=== PATIENT | female | born 1995 | race Caucasian/White ===

== ENCOUNTER 2016-10-28 04:21 | Inpatient (IN) | payer OTHER ==
[2016-10-28] MEDS: DEXTROSE 5%-LACTATED RINGERS 1,000 ML IV PRN ×2 (05:30→10:58)
--- OUTSIDE RECORDS SUMMARY | 2016-10-28 05:38 | XMS REPORT | Continuity of Care Document ---
:1995 Author Organization [facility] ([facility]) Address [address] [place] [address] Phone [phone] Care Team Providers Name Role Phone Marlo Adrian Primary Care Provider [phone] Source Comments This disclosure is being made pursuant to the Care Everywhere program, applicable federal and state laws, and may not contain all informaitonavailable regarding this patient.[facility] ([facility]) Active Allergies and Adverse Reactions Allergen Noted Date Severity Reactions Comments Grape 11/01/2010 OTHER Mom reports moderate facial swelling after Adeola ingests grapes Current Medications Prescription Sig. Disp. Refills Start Date End Date Status norethindrone Take 1 Tab by mouth 28 Tab 12 03/21/2014 Active (NOR-Q.D.) 0.35 mg daily. Indications: tablet CONTRACEPTION Active Problems Problem Noted Date Palpitations 11/25/2015 Syncope 11/25/2015 Smoking 11/25/2015 Asthma 03/09/2014 SVT (supraventricular tachycardia) 10/15/2010 ADHD (attention deficit hyperactivity disorder) 10/15/2010 Resolved Problems Problem Noted Date Resolved Date (spontaneous vaginal delivery) 03/19/2014 11/25/2015 premature rupture of membranes 03/09/2014 11/25/2015 Anemia of in third trimester 03/09/2014 11/25/2015 Social History Tobacco Use Types Packs/Day Years Used Date Current Every Day Smoker Cigarettes 1 6 Smokeless Tobacco: Never Used Tobacco Cessation:Ready to Quit: No Comments: Alcohol Use Drinks/Week oz/Week Comments No 0 Standard drinks or equivalent 0.0 Last Filed Vital Signs Vital Sign Reading Time Taken Blood Pressure 113/61 11/16/2015 10:20 AM CDT Pulse 94 11/16/2015 10:19 AM CDT Temperature 36.2 C (97.2 F) 11/16/2015 10:19 AM CDT Respiratory Rate 24 11/16/2015 10:20 AM CDT Height 1.579 m (5' 2.17") 11/16/2015 10:20 AM CDT Weight 52.2 kg (115 lb 1.3 oz) 11/16/2015 10:20 AM CDT Body Mass Index 20.94 11/16/2015 10:20 AM CDT Oxygen Saturation 99% 11/16/2015 10:22 AM CDT Plan of Care Health Maintenance Due Date Last Done Comments Hepatitis B Vaccine (1 of 3 - Primary Series) 1995 HPV Vaccine (1 of 3 - Female/Unknown 3 Dose Series) 2006 Tdap Vaccine 2006 Meningococcal Vaccine (1 of 1) 2011 Lipid Disorder Screening 2013 MMR Vaccine 2013 Td Vaccine 2013 Varicella Vaccine (1 of 2 - Adult - No Evidence of 2013 Immunity) Pneumococcal Vaccine (1 of 1 - PPSV23) 2014 Influenza Vaccine: Seasonal (#1) 02/22/2016 Results from Last 3 Months Not on file
[2016-10-28] MEDS ORDERED: LIDOCAINE HCL 50 ML VIAL PERI PRN (05:39)
[2016-10-28] MEDS ORDERED: OXYTOCIN/DEXTROSE 5%-WATER 30 UNITS/500 ML BAG IV ONE ×2 (05:39→14:12)
[2016-10-28 06:44] LABS: Cocaine Ur Negative (NEGATIVE); Urine Barbiturate Negative (NEGATIVE); Urine Benzodiazepines Negative (NEGATIVE); Urine Opiates Negative (NEGATIVE); Urine PCP Negative (NEGATIVE); Urine THC Negative (NEGATIVE)
--- NOTE | 2016-10-28 08:23 | PN ---
Progess Note - Interim Narrative: 10/28/16 08:21 Patient rating contractions 4 out of 10. Vital signs stable. Pitocin at 6 mu/min. FHT: reassuring Contractions q 3-4 min Cervix: 4/60/-1, SROM at 0300 - clear Impression: Intrauterine at 36 4/7 weeks labor Plan: Continue Pitocin augmentation. Start IV antibiotics for prolonged rupture of membranes after 1500 today if still .
[2016-10-28] MEDS: RINGERS SOLUTION,LACTATED 1,000 ML IV ONE ×2 (08:46→10:00)
[2016-10-28] MEDS ORDERED: BUPIVACAINE HCL/0.9 % NACL/PF 250 ML EP PRN (09:07)
[2016-10-28] MEDS ORDERED: ONDANSETRON HCL/PF 2 MG/ML VIAL IV PRN (09:07)
[2016-10-28] MEDS ORDERED: BUPIVACAINE HCL/PF 30 ML VIAL EP ONE (09:07)
[2016-10-28] MEDS ORDERED: NALOXONE HCL 1 MG/1 ML SYRG IV PRN (09:07)
--- NOTE | 2016-10-28 10:24 | OR ---
Anesthesia Procedure Note - Anesthesia Procedure Note Date of Service: 10/28/16 Narrative: Vital Signs - Last Taken Temp 37.6 C H 10/28/16 09:54 Pulse 82 10/28/16 09:54 Resp 20 10/28/16 09:54 BP 102/62 10/28/16 09:54 Pulse Ox 96 10/28/16 09:54 10/28/16 10:23 ANESTHESIA PROCEDURE NOTE Date of Procedure: 10/28/2016. Time of procedure: 999. Performed by: Saji Dumont CRNA Electric Refrigerator Preparer: None. Preprocedure diagnosis: Active labor. Post procedure diagnosis: Same. Procedure: Insertion of labor epidural. Indications: The patient is a 21 -year-old female in active labor requesting labor epidural for pain management. Findings: See below. Details of the procedure: The patient was placed in a sitting position. DuraPrep as well as Betadine swabs 3 was applied to the patient's back. Patient was then draped in a sterile fashion. Lidocaine 1% was infiltrated to the skin and subcutaneous tissues at the level of the L3 4 interspace. The epidural space was identified using a 18-gauge Tuohy needle with loss-of- resistance technique. Epidural catheter was inserted to a depth of 10 centimeters at skin. Negative test dose was elicited using 3 mL of 1.5% preservative-free lidocaine plus epinephrine 1 200,000. The epidural catheter was then taped and secured in place. A loading dose of 8 mL of 0.25% preservative-free bupivacaine was administered to the epidural catheter after negative aspiration for blood and CSF. EBL: Minimal. Fluids: N/A. Specimen: N/A. Post procedure condition: The patient tolerated the procedure well. No complications were noted. Thank you for this consultation. Saji Dumont CRNA
--- NOTE | 2016-10-28 13:42 | OR ---
Operative Report - Dictated Report Narrative: Spontaneous vaginal delivery of viable female at 1325 on 10/28/16 in JOCELINE position with Apgars 9 and 9, weighing 2594 g. Cord clamping delayed approximately 1 minute Placenta delivered complete, intact, with three vessel cord Estimated blood loss: less than 50 ml Lacerations: None History for MU Definition: * The number of deliveries resulting in a live the patient experienced prior to current hospitalization * The previous delivery of live twins or any live multiple gestation is considered one live event. *If primagravida or nulliparous is documented select zero for the number of previous live births. Live Events: 2
[2016-10-28] MEDS ORDERED: BENZOCAINE/MENTHOL 81 SPRAY CAN TP PRN (14:12)
[2016-10-28] MEDS ORDERED: BISACODYL 10 MG SUPP.RECT RC PRN (14:12)
[2016-10-28] MEDS ORDERED: HYDROCORTISONE 30 APPL TUBE TP PRN (14:12)
[2016-10-28] MEDS ORDERED: SENNOSIDES 8.6 MG TABLET PO PRN (14:12)
[2016-10-28] MEDS ORDERED: GLYCERIN/WITCH HAZEL LEAF 40 APPL BOX TP PRN (14:12)
[2016-10-28] MEDS ORDERED: oxyCODONE HCL/ACETAMINOPHEN 1 TAB TABLET PO PRN ×2 (14:12)
[2016-10-28] MEDS: IBUPROFEN 800 MG TABLET PO PRN (16:40)
[2016-10-28] MEDS: DOCUSATE SODIUM 100 MG CAPSULE PO SCH (20:52)
[2016-10-29] MEDS: IBUPROFEN 800 MG TABLET PO PRN (08:01)
[2016-10-29] MEDS: DOCUSATE SODIUM 100 MG CAPSULE PO SCH ×2 (08:01→22:00)
--- NOTE | 2016-10-29 14:54 | PN ---
Subjective - Date and Time Seen Date: 10/29/16 Time: 14:52 Objective - Vitals Vitals: Last Vital Signs Temp 36.5 C 10/29/16 11:06 Pulse 81 10/29/16 11:06 Resp 16 10/29/16 11:06 BP 102/59 10/29/16 11:06 Pulse Ox 97 10/29/16 11:06 Patient denies complaints. Lochia wnl Abdomen - soft, nontender Uterus - firm, at umbilicus - 1 No calf tenderness Impression: day #1 - s/p spontaneous vaginal delivery. Plan: Continue routine care Cauti Physician Documentation - Urinary Catheter Management Urethral (Leahy) Date of Insertion: 10/28/16 Time of Insertion: 10:50 Date of Removal: 10/28/16 Time of Removal: 13:14
[2016-10-30] MEDS: IBUPROFEN 800 MG TABLET PO PRN (08:06)
[2016-10-30] MEDS: DOCUSATE SODIUM 100 MG CAPSULE PO SCH (08:07)
[2016-10-30 08:13] VITALS: BP 110/72
--- NOTE | 2016-10-30 08:27 | PN ---
Subjective - Date and Time Seen Date: 10/30/16 Time: 08:24 Objective - Vitals Vitals: Last Vital Signs Temp 36.5 C 10/30/16 08:10 Pulse 73 10/30/16 08:10 Resp 16 10/30/16 08:10 BP 110/72 10/30/16 08:10 Pulse Ox 96 10/30/16 08:10 Patient denies complaints. Lochia - WNL AFVSS Abd - soft, NT Uterus - @ u-2 No calf tenderness or LE edema Impression: 1. S/P of 36 4/7wk female 2. Anemia Plan: 1. Routine d/c instructions. 2. Continue Iron supplement. Cauti Physician Documentation - Urinary Catheter Management Urethral (Leahy) Date of Insertion: 10/28/16 Time of Insertion: 10:50 Date of Removal: 10/28/16 Time of Removal: 13:14
== END 2016-10-30 10:10 | disposition home or self-care (01) | DRG 775 ==
LOC: OB 04:21
PROVIDERS: ADMIT Obstetrics & Gynecology; ATTEND Obstetrics & Gynecology
PROC: 10E0XZZ Delivery of Products of Conception, External Approach (ICD-10-PCS; principal; 2016-10-28)
PROC: 4A1HXCZ Monitoring of Products of Conception, Cardiac Rate, External Approach (ICD-10-PCS; 2016-10-28)
PROC: 3E0S3CZ (ICD-10-PCS; 2016-10-28)
DX: O99.02 Anemia complicating childbirth (principal); O60.14X0 Preterm labor third trimester with preterm delivery third trimester, not applicable or unspecified; D50.8 Other iron deficiency anemias; O99.334 Smoking (tobacco) complicating childbirth; F17.210 Nicotine dependence, cigarettes, uncomplicated; Z3A.37 37 weeks gestation of pregnancy; Z37.0 Single live birth

== ENCOUNTER 2017-03-11 21:18 | Emergency (ER) | payer MEDICAID, OTHER ==
[2017-03-11] MEDS ORDERED: KETOROLAC TROMETHAMINE 30 MG/ML VIAL IM ONE (21:54)
[2017-03-11] MEDS ORDERED: HYDROcodone/ACETAMINOPHEN 1 EACH TABLET PO ONE (21:54)
[2017-03-11 22:02] VITALS: BP 104/76
[2017-03-11] MEDS ORDERED: HYDROcodone/ACETAMINOPHEN 1 EACH TABLET ONE (22:02)
[2017-03-11] MEDS ORDERED: KETOROLAC TROMETHAMINE 30 MG/ML VIAL ONE (22:02)
--- NOTE | 2017-03-11 22:03 | ERNOTE ---
ENT HPI Date of Service: 03/11/17 Presenting Symptoms: other - left ear pain Time Seen by Provider: 03/11/17 21:32 Source: patient - Immun/Allergies/Home Medications Immunizations: IMMUNIZATION HX Immunizations Up to Date Yes History of Influenza Vaccine Yes Hx Pneumococcal Vaccination No Allergies/Adverse Reactions: Allergies Allergy/AdvReac Type Severity Reaction Status Date / Time grape Allergy Verified 03/11/17 21:29 Home Medications: HOME MEDICATIONS Ibuprofen [Motrin] 200 - 800 mg PO Q6H PRN #100 tab 10/30/16 [Last Taken Unknown ] HYDROcodone/ACETAMINOPHEN [[place] 5-325] 1 tab PO Q4H PRN #12 tab 03/11/17 [Last Taken Unknown] - History of Present Illness Narrative: This is a 21-year-old female who comes to the emergency Department 2-1/2 days of left ear pain. Patient says that she has had slightly decreased hearing. She says the hearing "goes in and out". The patient denies any fever or chills. She denies any drainage from her ear. She says that the ear pain hurts down into the base of her neck. The patient says that she has never had symptoms like this in the past. Nothing makes the pain better or worse. She has had no fever chills nausea vomiting diarrhea constipation urinary symptoms chest pain cough or any other somatic complaints Review of Systems - Review of Systems Constitutional: Present: no symptoms reported EYE: Present: no symptoms reported ENT: Present: See HPI, ear pain, other - eustachian tube area pain Respiratory: Present: no symptoms reported Cardiology: Present: no symptoms reported Gastrointestinal/Abdominal: Present: no symptoms reported Genitourinary: Present: no symptoms reported Musculoskeletal: Present: no symptoms reported Skin: Present: no symptoms reported Neurological: Present: no symptoms reported Endocrine: Present: no symptoms reported Hematologic/Lymphatic: Present: no symptoms reported Psych: Present: no symptoms reported All Other Systems: All systems neg except as marked - Patient's Past Medical History Patient History - Medical: No pertinent hx Patient History - Cardiac/Respiratory: No pertinent hx Patient History - Cancer: No Hx of Cancer Patient History - Surgical Procedures: T & A Patient History - Other: None LMP (females 10-50): unknown - Family History Mother Family History - Medical: Diabetes Type 2 Grandmother-Maternal Family History - Medical: Diabetes Type 2 - Social History Living Situations: parents Abuse History: No History of abuse Psych History: No pertinent hx, Psychiatric Hx Smoking Status: Current every day smoker Have you smoked in the past 12 months: Yes Do you dip or chew tobacco: No Alcohol Use: none Drug Use: none - Immunizations Immunizations Up to Date: Yes Hx Pneumococcal Vaccination: No History of Influenza Vaccine: Yes Physical Exam - Physical Exam General Appearance: Present: wd/wn, alert, no apparent distress Head Exam: Present: normal inspection, no evidence of injury Eye Exam: Normal inspection: bilateral, PERRL: bilateral, EOMI: bilateral Ears, Nose, Throat: Present: other - extremely poor dentition. There is no tenderness to percussion. Bilateral tympanic membranes are pearly ricardo and normal in appearance. There is no fullness of the subcutaneous tissues. Neck: Present: normal inspection, nontender, other - no nuchal rigidity Respiratory: Present: no respiratory distress, lungs clear Cardiovascular/Chest: Present: regular rate, rhythm, no murmur Gastrointestinal/Abdominal: Present: normal bowel sounds, nontender Back Exam: Present: normal inspection Extremity Exam: Present: normal inspection, non-tender Neurological Exam: Present: alert, oriented, normal mood/affect Skin Exam: Present: normal color, warm/dry Lymphatic Exam: Present: no adenopathy ED Progress - Vital Signs Patient's Vital Signs:: I have reviewed the patient's vital signs. Vital Signs: Vital Signs 03/11/17 21:24 Temperature 36.7 C Pulse Rate 128 H Respiratory 18 Rate Blood Pressure 116/74 O2 Sat by Pulse 99 Oximetry - Progress/Reassessment Chief Complaint: Earache Progress:: Unchanged Progress Note-Subjective: 03/11/17 21:59 I had the patient attempt to clear her ears. The patient says that she got a severe wave of pain for which she felt like she had rubber neck on the left side after she popped her ears. This is very consistent with eustachian tube dysfunction. I'm going treat her with Sudafed, anti-inflammatory in the form of Toradol, and a few tablets of [place] to go home with. I really have nothing else to offer in the way of pain relief. So if this medicine doesn't help she still can go home with the same medicines. Therefore nocturnal hold her here to see if there is any result. Departure Clinical Impression: Eustachian tube dysfunction - Departure Disposition: Home self-care Condition: Stable Instructions: Earache Additional Instructions: As we discussed, your symptoms are very suspicious for something called eustachian tube dysfunction. The eustachian tube is what allows here pressure to equalize going up-and-down airplanes or up-and-down tall heals. If this tube gets swollen up usually with a viral infection, the pressure will not equalize and can cause significant discomfort. It causes pain in exactly the location that you have shown me. I want you to use Sudafed. This can be bought [id number] at any pharmacy. Use this as often as it is allowed. Usually this is every 4 hours. I want you to take ibuprofen. Take 3 of the 200 mg tablets every 6 hours. At 600 mg every 6 hours. For more severe pain he can take the prescribed hydrocodone. No driving or operating machinery all taking this medicine. ALESSANDRO Swann family doctor and set up a follow-up appointment Certainly if you develop increased symptoms, fever, drainage from the ear, or anything new or concerning he should return to the ER Prescriptions: HYDROcodone/ACETAMINOPHEN [[place] 5-325] 1 tab PO Q4H PRN #12 tab PRN Reason: Pain
[2017-03-11] MEDS ORDERED: PSEUDOEPHEDRINE HCL 30 MG TAB PO ONE (22:15)
== END 2017-03-11 22:23 | disposition home or self-care (01) ==
LOC: ER 21:18
DX: H68.002 Unspecified Eustachian salpingitis, left ear (principal); F17.200 Nicotine dependence, unspecified, uncomplicated

== ENCOUNTER 2018-03-30 00:28 | Inpatient (IN) ==
[2018-03-30] MEDS ORDERED: DEXTROSE 5%-LACTATED RINGERS 1,000 ML IV PRN (00:53)
[2018-03-30] MEDS ORDERED: RINGER'S SOLUTION,LACTATED 1,000 ML IV PRN (00:53)
[2018-03-30] MEDS ORDERED: ONDANSETRON HCL/PF 2 MG/ML VIAL IV PRN ×2 (00:53→06:52)
[2018-03-30] MEDS ORDERED: OXYTOCIN/DEXTROSE 5%-WATER 30 UNITS/500 ML BAG IV ONE ×2 (00:55→11:28)
[2018-03-30 04:50] LABS: Cocaine Ur Negative (NEGATIVE); Urine Barbiturate Negative (NEGATIVE); Urine Benzodiazepines Negative (NEGATIVE); Urine Opiates Negative (NEGATIVE); Urine PCP Negative (NEGATIVE); Urine THC Negative (NEGATIVE)
[2018-03-30] MEDS ORDERED: BUPIVACAINE HCL/0.9 % NACL/PF 250 ML EP PRN (06:52)
[2018-03-30] MEDS ORDERED: NALOXONE HCL 1 MG/1 ML SYRG IV PRN (06:52)
[2018-03-30] MEDS ORDERED: BUPIVACAINE HCL/PF 30 ML VIAL EP SCH (07:00)
--- NOTE | 2018-03-30 07:21 | ANES ---
Anesthesia Pre Procedure Eval Vitals/Labs: Last Vital Signs Temp 36.7 C 03/30/18 01:38 Pulse 104 H 03/30/18 01:38 Resp 16 03/30/18 01:38 BP 117/82 03/30/18 01:38 Pulse Ox 98 03/30/18 01:38 HOME MEDICATIONS vitamin,calcium,yloptlyo-mnrm-lsmlz acid tablet 1 tab PO DAILY [Last Taken 01/22/18 19:00] progesterone micronized 100 mg vaginal inserts 200 mg VG HS ea 01/22/18 [Last Taken 01/21/18] ferrous sulfate 325 mg (65 mg iron) tablet,delayed release 325 mg PO BID #60 tab 01/25/18 [Last Taken Unknown] Allergies/Adverse Reactions: Allergies Allergy/AdvReac Type Severity Reaction Status Date / Time grape Allergy Severe Anaphylaxis Verified 03/30/18 00:37 house dust Allergy Sneezing Verified 03/30/18 00:37 No Known Drug Allergies Allergy Verified 03/30/18 00:37 - Planned Procedure Planned Procedure: LABOR Medication List Reviewed:: Yes Allergies Verified: Yes Medical History (Last Reviewed 03/05/18 @ 15:11 by Becki Caballero) History of delivery, currently SVT (supraventricular tachycardia) Onset Date: ~2010 Tobacco abuse Onset Date: ~08/19/14 ADHD (attention deficit hyperactivity disorder) Anemia affecting Asthma History of delivery, currently Infection of kidney Onset Date: ~2012 labor Syncope Onset Date: ~2010 premature rupture of membranes (PPROM) delivered, current hospitalization Surgical History (Last Reviewed 03/05/18 @ 15:11 by Becki Caballero) History of cardiac radiofrequency ablation Onset Date: ~2010 History of tonsillectomy Onset Date: ~1998 History of wisdom tooth extraction Onset Date: ~2007 Family History (Last Reviewed 03/05/18 @ 15:11 by Becki Caballero) Father Unknown family medical history Mother Kidney failure Breast cancer Diabetes Grandmother Diabetes Cancer - Cardiovascular Tolerates Activity: Good Heart Sounds: S1 & S2, Regular - Anesthesia Assessment and Plan ASA Class: PS, II Anesthesia Type Plan: General LMA
--- NOTE | 2018-03-30 07:38 | ANES ---
Anesthesia Procedure Note Procedure Note: ANESTHESIA PROCEDURE NOTE Date of Procedure: 03/30/2018. Time of procedure: 724. Performed by: Saji Dumont CRNA Global Sourcing Manager: None. Preprocedure diagnosis: Active labor. Post procedure diagnosis: Same. Procedure: Insertion of labor epidural. Indications: The patient is a 22 -year-old female in active labor requesting labor epidural for pain management. Findings: See below. Details of the procedure: The patient was placed in a sitting position. DuraPrep as well as Betadine swabs X3 was applied to the patient's back. Patient was then draped in a sterile fashion. Lidocaine 1% was infiltrated to the skin and subcutaneous tissues at the level of the L3-4 interspace. The epidural space was identified using a 18-gauge Tuohy needle with loss-of- resistance technique. Epidural catheter was inserted to a depth of 10 centimeters at skin. Negative test dose was elicited using 3 mL of 1.5% preservative-free lidocaine plus epinephrine 1 200,000. The epidural catheter was then taped and secured in place. A loading dose of 8 mL of 0.25% preservative-free bupivacaine was administered to the epidural catheter after negative aspiration for blood and CSF. EBL: Minimal. Fluids: N/A. Specimen: N/A. Post procedure condition: The patient tolerated the procedure well. No complications were noted. Thank you for this consultation. Saji Dumont CRNA
--- NOTE | 2018-03-30 07:39 | ANES ---
Post Anesthesia Assessment - Vital Signs Vitals: Last Vital Signs Temp 36.7 C 03/30/18 01:38 Pulse 104 H 03/30/18 01:38 Resp 16 03/30/18 01:38 BP 117/82 03/30/18 01:38 Pulse Ox 98 03/30/18 01:38 Airway Patency: Normal - Mental Status Level Of Consciousness: Awake - N/V Assessment Nausea/Vomiting Presence: None Dehydration:: No
--- NOTE | 2018-03-30 10:48 | HP ---
Chief Complaint - Chief Complaint Date of Service: 03/30/18 Time of Service: 10:37 Chief Complaint: Leaking fluid History of Present Illness: 22 yo at 37 wks presents to L&D complaining of LOF since aroun 1400 yesterday. She began having contractions late last night when she presented to L&D. This complicated by history of PTD x 3 (34,36,36) on vaginal progesterone suppositories. Rh Positive Rubella immune GBS negative Medical History (Last Reviewed 03/05/18 @ 15:11 by Becki Caballero) History of delivery, currently SVT (supraventricular tachycardia) Onset Date: ~2010 Tobacco abuse Onset Date: ~08/19/14 ADHD (attention deficit hyperactivity disorder) Anemia affecting Asthma History of delivery, currently Infection of kidney Onset Date: ~2012 labor Syncope Onset Date: ~2010 premature rupture of membranes (PPROM) delivered, current hospitalization Surgical History: Surgical History (Last Reviewed 03/05/18 @ 15:11 by Becki Caballero) History of cardiac radiofrequency ablation Onset Date: ~2010 History of tonsillectomy Onset Date: ~1998 History of wisdom tooth extraction Onset Date: ~2007 Family History: Family History (Last Reviewed 03/05/18 @ 15:11 by Becki Caballero) Father Unknown family medical history Mother Kidney failure Breast cancer Diabetes Grandmother Diabetes Cancer Social History: Preferred Language Persian Abuse History No History of abuse Psych History No pertinent hx,Psychiatric Hx Review Of Systems (GEN) - Review of Systems EENTM: Present: No Symptoms Reported Respiratory: Present: No Symptoms Reported Cardiac: Present: No Symptoms Reported Abdominal: Present: No Symptoms Reported Genitourinary: Present: Other - leaking clear vaginal fluid since 1400 03/29/18. Musculoskeletal: Present: No Symptoms Reported Neurological: Present: No Symptoms Reported Skin: Present: No Symptoms Reported Endocrine: Present: No Symptoms Reported Immunizations: IMMUNIZATION HX Immunizations Up to Date Yes History of Influenza Vaccine Yes Hx Pneumococcal Vaccination No Allergies/Adverse Reactions: Allergies Allergy/AdvReac Type Severity Reaction Status Date / Time grape Allergy Severe Anaphylaxis Verified 03/30/18 00:37 house dust Allergy Sneezing Verified 03/30/18 00:37 No Known Drug Allergies Allergy Verified 03/30/18 00:37 Home Medications: HOME MEDICATIONS vitamin,calcium,sjtdnyaw-mhfk-zgzts acid tablet 1 tab PO DAILY [Last Taken 01/22/18 19:00] progesterone micronized 100 mg vaginal inserts 200 mg VG HS ea 01/22/18 [Last Taken 01/21/18] ferrous sulfate 325 mg (65 mg iron) tablet,delayed release 325 mg PO BID #60 tab 01/25/18 [Last Taken Unknown] Exam - Exam Vital Signs: Vital Signs - Last Taken Temp 36.7 C 03/30/18 01:38 Pulse 104 H 03/30/18 01:38 Resp 16 03/30/18 01:38 BP 117/82 03/30/18 01:38 Pulse Ox 98 03/30/18 01:38 Constitutional: Present: Alert, Oriented x3, Cooperative, No distress ENT Exam: Present: hearing grossly normal Back Exam: Present: no CVA tenderness Respiratory: Present: lungs clear, no respiratory distress Cardiovascular/Chest: Present: normal peripheral pulses, regular rate, rhythm Abdomen: Present: soft, nontender, other - gravid /Rectal: Present: External genitalia normal, Other - cervix 1/70/-3, clear fluid Extremity: Present: non-tender, no pedal edema, no calf tenderness Skin Exam: Present: normal color, warm/dry, no cyanosis Lymphatic: Present: no adenopathy Neurologic: Present: alert, normal mood/affect, oriented x 3 Appearance: Present: appropriate appearance Eye contact: Present: cooperative, good eye contact, normal speech Diagnostic Studies: Laboratory Results Urine Opiates Screen Negative (NEGATIVE) 03/30/18 Unknown Barbiturate Screen Negative (NEGATIVE) 03/30/18 Unknown Ur Phencyclidine Scrn Negative (NEGATIVE) 03/30/18 Unknown Urine Amphetamine Negative (NEGATIVE) 03/30/18 Unknown U Benzodiazepines Scrn Negative (NEGATIVE) 03/30/18 Unknown Urine Cocaine Screen Negative (NEGATIVE) 03/30/18 Unknown Urine Marijuana (THC) Negative (NEGATIVE) 03/30/18 Unknown Assessment/Plan - Assessment/Plan (1) Premature rupture of membranes Assessment: Admit for pitocin augmentation of labor. Epidural PRN. Observe closely for s/ s of chorioamnionitis. Problem: Acute Qualifiers: PROM onset of labor timing: onset of labor within 24 hours of rupture PROM gestational age: full term Qualified Code(s): O42.02 - Full-term premature rupture of membranes, onset of labor within 24 hours of rupture
--- NOTE | 2018-03-30 10:51 | PN ---
Progess Note - Interim Date: 03/30/18 Time: 10:48 Narrative: 03/30/18 10:48 Patient comfortable with epidural Vital signs stable. Pitocin at 10 mu/min. FHT: 140 baseline, reassuring Contractions q 2-3 min Cervix: 8/80/0, floor bag artificially ruptured with bloody/clear fluid Impression: Intrauterine at 37 weeks with premature ruptured membranes in active labor Plan: Anticipate normal spontaneous vaginal delivery soon. We'll observe closely for signs or symptoms of chorioamnionitis.
[2018-03-30] MEDS ORDERED: oxyCODONE HCL/ACETAMINOPHEN 1 TAB TABLET PO PRN ×2 (11:28)
[2018-03-30] MEDS ORDERED: BENZOCAINE/MENTHOL 81 SPRAY CAN TP PRN (11:28)
[2018-03-30] MEDS ORDERED: GLYCERIN/WITCH HAZEL LEAF 40 APPL BOX TP PRN (11:28)
[2018-03-30] MEDS ORDERED: HYDROCORTISONE 30 APPL TUBE TP PRN (11:28)
[2018-03-30] MEDS ORDERED: SENNOSIDES 8.6 MG TABLET PO PRN (11:28)
[2018-03-30] MEDS ORDERED: BISACODYL 10 MG SUPP.RECT RC PRN (11:28)
--- NOTE | 2018-03-30 11:28 | OR ---
Operative Report - Dictated Report Narrative: Spontaneous vaginal delivery of viable female at 1114 on 03/30/2018 with Apgars 9 and 9, weighing 2756 g and JOCELINE position. Cord clamping delayed approximately 1 minute Placenta delivered complete, intact, with three vessel cord Estimated blood loss: less than 50 ml Anesthesia: epidural Lacerations: Right periurethral abrasion with no repair needed History for Definition: * The number of deliveries resulting in a live the patient experienced prior to current hospitalization * The previous delivery of live twins or any live multiple gestation is considered one live event. *If primagravida or nulliparous is documented select zero for the number of previous live births. Live Events: 3
[2018-03-30] MEDS: IBUPROFEN 800 MG TABLET PO PRN (17:34)
[2018-03-30] MEDS: FERROUS SULFATE 325 MG TABLET PO SCH (23:00)
[2018-03-30] MEDS: DOCUSATE SODIUM 100 MG CAPSULE PO SCH (23:00)
[2018-03-31] MEDS: DOCUSATE SODIUM 100 MG CAPSULE PO SCH ×2 (08:48→22:21)
[2018-03-31] MEDS: PRENATAL VITS96/IRON FUM/FOLIC 1 TAB TABLET PO SCH (08:48)
[2018-03-31] MEDS: FERROUS SULFATE 325 MG TABLET PO SCH ×2 (08:48→22:21)
[2018-03-31] MEDS: IBUPROFEN 800 MG TABLET PO PRN ×2 (15:56→22:21)
--- NOTE | 2018-03-31 17:27 | PN ---
Subjective - Date and Time Seen Date: 03/31/18 Time: 17:25 Objective - Vitals Vitals: Last Vital Signs Temp 36.6 C 03/31/18 15:50 Pulse 65 03/31/18 15:50 Resp 18 03/31/18 15:50 BP 97/61 03/31/18 15:50 Pulse Ox 98 03/31/18 15:50 Patient denies complaints. Bottle feeding. Lochia wnl Abdomen - soft, nontender Uterus - firm, at umbilicus - 1 No calf tenderness Impression: day #1 - s/p spontaneous vaginal delivery. Plan: Continue routine care. Discharge instructions given for planned discharge tomorrow a.m. Cauti Physician Documentation - Urinary Catheter Management Urethral (Leahy) Date of Insertion: 03/30/18 Time of Insertion: 08:00 Assessment/Plan - Problems/Diagnosis (1) Premature rupture of membranes Problem: Acute Qualifiers: PROM onset of labor timing: onset of labor within 24 hours of rupture PROM gestational age: full term Qualified Code(s): O42.02 - Full-term premature rupture of membranes, onset of labor within 24 hours of rupture
[2018-04-01 09:18] VITALS: BP 108/70
[2018-04-01] MEDS: PRENATAL VITS96/IRON FUM/FOLIC 1 TAB TABLET PO SCH (09:22)
[2018-04-01] MEDS: FERROUS SULFATE 325 MG TABLET PO SCH (09:22)
[2018-04-01] MEDS: DOCUSATE SODIUM 100 MG CAPSULE PO SCH (09:22)
--- NOTE | 2018-04-01 09:58 | PN ---
Subjective - Date and Time Seen Date: 04/01/18 Time: 09:56 Objective Objective Narrative: See vital signs - Review of Systems Generalized/Overall Review: Reports: No Symptoms Reported EENTM: Reports: No Symptoms Reported Respiratory: Reports: No Symptoms Reported Cardiac: Reports: No Symptoms Reported Abdominal: Reports: No Symptoms Reported Genitourinary Symptoms: Reports: No Symptoms Reported Musculoskeletal Complaints: Reports: No Symptoms Reported Neurological: Reports: No Symptoms Reported Skin: Reports: No Symptoms Reported Endocrine: Reports: No Symptoms Reported - Vitals Vitals: Last Vital Signs Temp 36.2 C 04/01/18 08:00 Pulse 78 04/01/18 08:00 Resp 18 04/01/18 08:00 BP 108/70 04/01/18 08:00 Pulse Ox 98 04/01/18 08:00 - Exam Constitutional: Present: Alert, Oriented x3, Cooperative, No distress Abdomen: Present: soft, nontender - uterus firm Extremity: Present: non-tender, no calf tenderness Skin Exam: Present: normal color, warm/dry, no cyanosis Appearance: Present: appropriate appearance Eye contact: Present: cooperative Thoughts: Present: normal thought pattern Cauti Physician Documentation - Urinary Catheter Management Urethral (Leahy) Date of Insertion: 03/30/18 Time of Insertion: 08:00 Assessment/Plan Plan Narrative: PPD2 s/p Discharge home Follow-up with Dr. Gandhi in 6 weeks
== END 2018-04-01 12:10 | disposition home or self-care (01) | DRG 775 ==
LOC: OBCLINIC 00:28 → OB 00:44
PROVIDERS: ADMIT Obstetrics & Gynecology; ATTEND Obstetrics & Gynecology
CPT/HCPCS: 59025; 80307; G0479

== ENCOUNTER 2020-03-19 00:10 | Inpatient (IN) ==
[2020-03-19] MEDS ORDERED: RINGER'S SOLUTION,LACTATED 1,000 ML IV ONE (00:25)
[2020-03-19] MEDS ORDERED: OXYTOCIN/DEXTROSE 5%-WATER 30 UNITS/500 ML BAG IV ONE ×2 (00:25→11:44)
[2020-03-19] MEDS ORDERED: ONDANSETRON 4 MG TAB.RAPDIS PO PRN (00:25)
[2020-03-19] MEDS ORDERED: DEXTROSE 5%-LACTATED RINGERS 1,000 ML IV ONE (01:20)
[2020-03-19 01:56] LABS: Cocaine Ur Negative (NEGATIVE); Urine Barbiturate Negative (NEGATIVE); Urine Benzodiazepines Negative (NEGATIVE); Urine Opiates Negative (NEGATIVE); Urine PCP Negative (NEGATIVE); Urine THC Negative (NEGATIVE)
[2020-03-19] MEDS: DEXTROSE 5%-LACTATED RINGERS 1,000 ML IV PRN ×3 (02:27→10:32)
[2020-03-19 04:36] LABS: Hematocrit 26.2 % (37.0-47.0); Hemoglobin 8.7 gm/dL (12.5-16.0); Mean Cell Volume 87.6 fl (78-100); Mean Corpuscular Hemoglobin 29.1 pg (27-31); Mean Corpuscular Hgb Conc 33.2 g/dl (32-36); Mean Platelet Volume 9.3 fl (8-12.5); Neutrophil # 9.1 K/mm3 (1.3-6.0); Neutrophil % 64.1 % (42-75.0); Platelet Count 235 K/mm3 (150-450); Red Blood Count 2.99 M/mm3 (4.2-5.4); Red Cell Distribution Width 13.6 % (11.5-14.0); White Blood Count 14.3 K/mm3 (4.0-10.5)
--- NOTE | 2020-03-19 04:53 | HP ---
Chief Complaint - Chief Complaint Date of Service: 03/19/20 Time of Service: 04:44 Chief Complaint: induction of labor History of Present Illness: 24 yo at 39w2d presents to L&D for induction of labor due to small for gestational age. This complicated by anemia, growth at 34% with head measurements <3%, h/o PTD, h/o SVT with cardiac ablation (2010), h/o ADHD, and h/o asthma. Rh positive Rubella immune GBS negative Medical History (Last Reviewed 03/19/20 @ 04:58 by Antelmo Gandhi DO) Anemia affecting 2013, 2014, 2016, 2017, 2019 History of delivery, currently SVT (supraventricular tachycardia) Onset Date: ~2010 was supposed to have surgery but delayed due to pregnancies. Seeing specialist at [facility]. Tobacco abuse Onset Date: ~08/19/14 ADHD (attention deficit hyperactivity disorder) was tx'd w/concerta which she stopped w/. No current medications. Asthma as a child, no hospitalizations. No current inhalers or meds. History of delivery, currently 03/19/14-PPROM 34w1d [facility]. 10/28/16-PROM. Infection of kidney Onset Date: ~2012 labor 2013, 2015 Syncope Onset Date: ~2010 premature rupture of membranes (PPROM) delivered, current hospitalization x3. 2013,2014, 2016. Surgical History: Surgical History (Last Reviewed 03/19/20 @ 04:59 by Antelmo Gandhi DO) History of cardiac radiofrequency ablation Onset Date: ~2010 History of tonsillectomy Onset Date: ~1998 History of wisdom tooth extraction Onset Date: ~2007 Family History: Family History (Last Reviewed 03/19/20 @ 04:59 by Antelmo Gandhi DO) Father Unknown family medical history Mother Kidney failure Breast cancer x2 Diabetes Grandmother Diabetes Cancer Social History: (Last Reviewed 03/19/20 @ 04:59 by Antelmo Gandhi DO) Social History: adopted: No Marital status: Single household members: family, children, significant other number of children: 4 current occupational status: unemployed current occupational exposures/hazards: No Highest education level completed: 10th grade Service: No Tobacco: Smoking Status: Former smoker tobacco type: cigarettes Smoking cigarettes per day: 10 counseling given: provider counseling Alcohol: alcohol intake: former Substance Use: substance use type: former substance user Dietary Habits: caffeine: Yes caffeine comment: 3-4/week Type: coffee, carbonated beverages Review Of Systems (GEN) - Review of Systems Generalized/Overall Review: Present: No Symptoms Reported EENTM: Present: No Symptoms Reported Respiratory: Present: No Symptoms Reported Cardiac: Present: No Symptoms Reported Abdominal: Present: No Symptoms Reported Genitourinary: Present: No Symptoms Reported Musculoskeletal: Present: No Symptoms Reported Neurological: Present: No Symptoms Reported Skin: Present: No Symptoms Reported Endocrine: Present: No Symptoms Reported Immunizations: IMMUNIZATION HX Immunizations Up to Date Yes History of Influenza Vaccine Yes Hx Pneumococcal Vaccination No Allergies/Adverse Reactions: Allergies Allergy/AdvReac Type Severity Reaction Status Date / Time grape Allergy Severe Anaphylaxis Verified 03/19/20 01:26 house dust Allergy Sneezing Verified 03/19/20 01:26 No Known Drug Allergies Allergy Verified 03/19/20 01:26 Home Medications: HOME MEDICATIONS prenat.vits,fan,yex-nadt-tklnl 1 tab PO DAILY 09/16/19 [Last Taken Unknown] ferrous sulfate 325 mg (65 mg iron) tablet 325 mg PO DAILY #30 tab 09/17/19 [Last Taken Unknown] Exam - Exam Constitutional: Present: Alert, Oriented x3, Cooperative, No distress ENT Exam: Present: hearing grossly normal Breasts: Present: Exam deferred Respiratory: Present: lungs clear, no respiratory distress Cardiovascular/Chest: Present: normal peripheral pulses, regular rate, rhythm Abdomen: Present: soft, nontender, no rebound tenderness, other - gravid /Rectal: Present: Other - Cervix - 2/60/-2 Extremity: Present: no pedal edema, no calf tenderness Skin Exam: Present: normal color, warm/dry, no cyanosis Lymphatic: Present: no adenopathy Neurologic: Present: alert, normal mood/affect, oriented x 3 Appearance: Present: appropriate appearance, appropriate insight Eye contact: Present: cooperative, good eye contact Thoughts: Present: normal thought pattern, normal mood /affect Diagnostic Studies: Abnormal Lab Results 03/19/20 Range/Units 04:30 WBC 14.3 H (4.0-10.5) K/mm3 RBC 2.99 L (4.2-5.4) M/mm3 Hgb 8.7 L (12.5-16.0) gm/dL Hct 26.2 L (37.0-47.0) % Immature Gran % (Auto) 1.70 H (0.001-0.429) % Immature Gran # (Auto) 0.24 H (0.000-0.0310) K/mm3 Neutrophils # 9.1 H (1.3-6.0) K/mm3 Lymphocytes # 3.70 H (1.5-3.5) k/mm3 Laboratory Results WBC 14.3 K/mm3 (4.0-10.5) H 03/19/20 04:30 RBC 2.99 M/mm3 (4.2-5.4) L 03/19/20 04:30 Hgb 8.7 gm/dL (12.5-16.0) L 03/19/20 04:30 Hct 26.2 % (37.0-47.0) L 03/19/20 04:30 MCV 87.6 fl (78-100) 03/19/20 04:30 MCH 29.1 pg (27-31) 03/19/20 04:30 MCHC 33.2 g/dl (32-36) 03/19/20 04:30 RDW 13.6 % (11.5-14.0) 03/19/20 04:30 Plt Count 235 K/mm3 (150-450) 03/19/20 04:30 MPV 9.3 fl (8-12.5) 03/19/20 04:30 Immature Gran % (Auto) 1.70 % (0.001-0.429) H 03/19/20 04:30 Immature Gran # (Auto) 0.24 K/mm3 (0.000-0.0310) H 03/19/20 04:30 Neutrophils % 64.1 % (42-75.0) 03/19/20 04:30 Lymphocytes % 25.9 % (20-51) 03/19/20 04:30 Monocytes % 6.4 % (0.0-9) 03/19/20 04:30 Eosinophils % 1.5 % (0.0-3.0) 03/19/20 04:30 Basophils % 0.4 % (0.0-1.0) 03/19/20 04:30 Nucleated RBC % 0.0 k/mm3 (0-1) 03/19/20 04:30 Neutrophils # 9.1 K/mm3 (1.3-6.0) H 03/19/20 04:30 Lymphocytes # 3.70 k/mm3 (1.5-3.5) H 03/19/20 04:30 Monocytes # 0.9 k/mm3 (0.0-1.0) 03/19/20 04:30 Eosinophils # 0.2 k/mm3 (0.0-0.7) 03/19/20 04:30 Absolute Basophils 0.1 k/mm3 (0.0-0.1) 03/19/20 04:30 Urine Opiates Screen Negative (NEGATIVE) 03/19/20 00:30 Barbiturate Screen Negative (NEGATIVE) 03/19/20 00:30 Ur Phencyclidine Scrn Negative (NEGATIVE) 03/19/20 00:30 Urine Amphetamine Negative (NEGATIVE) 03/19/20 00:30 U Benzodiazepines Scrn Negative (NEGATIVE) 03/19/20 00:30 Urine Cocaine Screen Negative (NEGATIVE) 03/19/20 00:30 Urine Marijuana (THC) Negative (NEGATIVE) 03/19/20 00:30 Assessment/Plan - Assessment/Plan (1) SGA (small for gestational age), , affecting care of mother, antepartum Assessment: Admit for pitocin induction of labor. Epidural PRN. Problem: Suspected Qualifiers: Fetus number: single or unspecified fetus Qualified Code(s): O36.5990 - Maternal care for other known or suspected poor growth, unspecified trimester, not applicable or unspecified (2) Anemia Problem: Acute Qualifiers: Anemia type: iron deficiency Iron deficiency anemia type: inadequate dietary iron intake Qualified Code(s): D50.8 - Other iron deficiency anemias (3) History of delivery Problem: Chronic (4) Asthma Problem: Inactive Qualifiers: Asthma severity: mild Asthma persistence: intermittent Asthma complication type: uncomplicated Qualified Code(s): J45.20 - Mild intermittent asthma, uncomplicated (5) ADHD (attention deficit hyperactivity disorder) Problem: Inactive Qualifiers: Attention deficit-hyperactivity disorder type: unspecified Qualified Code(s): F90.9 - Attention-deficit hyperactivity disorder, unspecified type
--- NOTE | 2020-03-19 05:42 | PN ---
Progess Note - Interim Date: 03/19/20 Time: 05:22 Narrative: 03/19/20 05:22 Upon admission patient was ginny q4-6 min and having late decelerations which resolved after an IV fluid bolus. Pitocin was started and tracing was reassuring for a couple hours until late decelerations returned. Late decelerations resolved with stopping pitocin and giving another IV fluid bolus. Pt denies any pain, N/V/F/C, lightheadedness, dizziness, fatigue, trauma, or vaginal bleeding. She rates her contractions as mild Vitals stable. BPs have been as low as 74/43 while patient sleeping. FHT 140, variability flucuates from minimal to moderate variability, accelerations present, no recent late decelerations Contractions q4-9 min, palpate mild Cervix 3-4/80/-2, AROM - light meconium Impression: 39w2d IUP with head measurements <3%, episodic late decelerations, MSF, anemia. Plan: Discussed possible need for c/s with patient and partner. IUPC placed to better assess contractions and tracing. WIll proceed with induction of labor anticipating . Preparations for emergent C/S made.
[2020-03-19] MEDS ORDERED: NALOXONE HCL 1 MG/1 ML SYRG IV PRN (05:56)
[2020-03-19] MEDS ORDERED: ONDANSETRON HCL/PF 2 MG/ML VIAL IV PRN (05:56)
[2020-03-19] MEDS ORDERED: BUPIVACAINE HCL/0.9 % NACL/PF 250 ML EP PRN (05:56)
[2020-03-19] MEDS ORDERED: fentaNYL CITRATE/PF 50 MCG/ML AMPUL IT SCH (06:00)
--- NOTE | 2020-03-19 06:26 | ANES ---
Anesthesia Pre Procedure Eval Vitals/Labs: Blood pressure 97/63, heart rate 108, temperature 36.6 C, respiration 16, SaO2 98 HOME MEDICATIONS prenat.vits,fan,oju-idag-liqbr 1 tab PO DAILY 09/16/19 [Last Taken Unknown] ferrous sulfate 325 mg (65 mg iron) tablet 325 mg PO DAILY #30 tab 09/17/19 [Last Taken Unknown] Allergies/Adverse Reactions: Allergies Allergy/AdvReac Type Severity Reaction Status Date / Time grape Allergy Severe Anaphylaxis Verified 03/19/20 01:26 house dust Allergy Sneezing Verified 03/19/20 01:26 No Known Drug Allergies Allergy Verified 03/19/20 01:26 - Planned Procedure Planned Procedure: elective induction Medication List Reviewed:: Yes Allergies Verified: Yes Medical History (Last Reviewed 03/19/20 @ 06:23 by Abe Cheema CRNA) Anemia affecting 2013, 2014, 2015, 2017, 2019 History of delivery, currently SVT (supraventricular tachycardia) Onset Date: ~2010 was supposed to have surgery but delayed due to pregnancies. Seeing specialist at [facility]. Tobacco abuse Onset Date: ~08/19/14 ADHD (attention deficit hyperactivity disorder) was tx'd w/concerta which she stopped w/. No current medications. Asthma as a child, no hospitalizations. No current inhalers or meds. History of delivery, currently 03/19/14-PPROM 34w1d [facility]. 10/28/16-PROM. Infection of kidney Onset Date: ~2012 labor 2013, 2015 Syncope Onset Date: ~2010 premature rupture of membranes (PPROM) delivered, current hospitalization x3. 2013,2014, 2016. Surgical History (Last Reviewed 03/19/20 @ 06:23 by Abe Cheema CRNA) History of cardiac radiofrequency ablation Onset Date: ~2010 History of tonsillectomy Onset Date: ~1998 History of wisdom tooth extraction Onset Date: ~2007 Family History (Last Reviewed 03/19/20 @ 06:23 by Abe Cheema CRNA) Father Unknown family medical history Mother Kidney failure Breast cancer x2 Diabetes Grandmother Diabetes Cancer - Family Anesthesia History Family History:: no untoward family reactions to anesthesia, no familial bleeding tendencies, no family history of clotting disorders, no family history of premature - Airway/Neck/Teeth Within Normal Limits:: Yes Neck Exam: full range of motion Mallampatti Score: 2 Thyromental (T-M) distance: > 6 cm Mandibulo Hyoid distance: > 3 cm - Respiratory Respiratory Physical: lungs clear Sleep Apnea currently treated: No Sleep Apnea by current assessment: No - Cardiovascular Cardiac History: arrhythmia Tolerate Activity: Fair Heart Sounds: S1 & S2, Regular - Gastrointestinal NPO since: 0 - Anesthesia Assessment and Plan ASA Class: PS, II, E Anesthesia Type Plan: Epidural - CSE for labor analgesia
--- NOTE | 2020-03-19 06:49 | ANES ---
Anesthesia Procedure Note Procedure Note: ANESTHESIA PROCEDURE NOTE Date of Procedure: 03/19/2020 Time of procedure: 6:30 AM. Performed by: COLTON Zhang CRNA, MSN Price Analyst: Patty Campa RN. Preprocedure diagnosis: Active labor, labor pain. Post procedure diagnosis: Same. Procedure:Epidural for labor analgesia L3-4. Indications: Labor pain. Findings: See below. Details of the procedure: The patient was placed on the side of the bed in sitting positionand prepped with DuraPrep then draped in a sterile fashion. Lidocaine 1% was infiltrated to the skin and subcutaneous tissues at the level of the L3-4 interspace. An 18-gauge Touhy needle was used to approach the epidural space with loss of resistance technique. Once loss of resistance was achieved a 27-gauge spinal needle was passed through the epidural needle and CSF was contacted. After CSF returned, 20 mcg of fentanyl was injected in the spinal needle was removed the epidural catheter was then threaded approximately 4 cm in the epidural needle was removed. The catheter was taped in place and after careful aspiration 3 mL of 1.5% lidocaine with 1-200,000 epinephrine was injected without change in maternal heart rate or sensorium. . EBL: Minimal. Fluids: N/A. Specimen: N/A. Post procedure condition: The patient tolerated the procedure well with good relief. No complications were noted. Thank you for this consultation. Abe Cheema CRNA, COLTON, MSN
--- NOTE | 2020-03-19 06:49 | ANES ---
Post Anesthesia Discharge - Transfer of Care Transfer of Care handoff given to nurse: Yes - Discharge from PACU Discharge from PACU when meets criteria: Yes - Comfortable
--- NOTE | 2020-03-19 07:28 | ANES ---
Post Anesthesia Assessment - Vital Signs Airway Patency: Normal - Mental Status Level Of Consciousness: Awake, Alert, Appropriate - Pain Level Pain Score: 0 - N/V Assessment Nausea/Vomiting Presence: None Dehydration:: No
[2020-03-19] MEDS ORDERED: GLYCERIN/WITCH HAZEL LEAF 40 APPL BOX TP PRN (11:44)
[2020-03-19] MEDS ORDERED: HYDROCORTISONE 30 APPL TUBE TP PRN (11:44)
[2020-03-19] MEDS ORDERED: SENNOSIDES 8.6 MG TABLET PO PRN (11:44)
[2020-03-19] MEDS ORDERED: BISACODYL 10 MG SUPP.RECT RC PRN (11:44)
[2020-03-19] MEDS ORDERED: BENZOCAINE/MENTHOL 81 SPRAY CAN TP PRN (11:44)
--- NOTE | 2020-03-19 11:47 | OR ---
Operative Report - Dictated Report Narrative: Spontaneous vaginal delivery of vigorously crying viable male at 1115 on 03/19/2020 with Apgars 8 9, weighing 2650 g and JOCELINE position. Cord clamping delayed approximately 1 minute Placenta delivered complete, intact, with three vessel cord Estimated blood loss: Less than 50 ml Anesthesia: Epidural Lacerations: None History for MU History for MU Definition: * The number of deliveries resulting in a live the patient experienced prior to current hospitalization * The previous delivery of live twins or any live multiple gestation is considered one live event. *If primagravida or nulliparous is documented select zero for the number of previous live births. Live Events: Live Events: 4
[2020-03-19] MEDS: FERROUS SULFATE 325 MG TABLET PO SCH (16:28)
[2020-03-19] MEDS: IBUPROFEN 800 MG TABLET PO PRN (16:28)
[2020-03-19] MEDS: oxyCODONE HCL/ACETAMINOPHEN 1 TAB TABLET PO PRN ×2 (18:59→23:32)
[2020-03-19] MEDS: DOCUSATE SODIUM 100 MG CAPSULE PO SCH (20:13)
[2020-03-20] MEDS: IBUPROFEN 800 MG TABLET PO PRN ×3 (03:26→15:58)
[2020-03-20] MEDS: DOCUSATE SODIUM 100 MG CAPSULE PO SCH ×2 (09:35→20:36)
[2020-03-20] MEDS: FERROUS SULFATE 325 MG TABLET PO SCH ×2 (09:35→15:59)
[2020-03-20] MEDS: PRENATAL VITS96/IRON FUM/FOLIC 1 TAB TABLET PO SCH (09:36)
[2020-03-20] MEDS: oxyCODONE HCL/ACETAMINOPHEN 1 TAB TABLET PO PRN ×2 (09:37→19:15)
--- NOTE | 2020-03-20 09:42 | PN ---
Subjective - Date and Time Seen Date: 03/20/20 Time: 09:41 Objective - Vitals Vitals: Last Vital Signs Temp 36.3 C 03/20/20 08:17 Pulse 89 03/20/20 08:17 Resp 18 03/20/20 08:17 BP 120/72 03/20/20 08:17 Pulse Ox 98 03/20/20 08:17 Patient denies complaints. Lochia wnl abdomen - soft, nontender Uterus -firm, at umbilicus - 1 no calf tenderness Impression: day #1 - s/p spontaneous vaginal delivery. Plan: Continue routine care Cauti Physician Documentation - Urinary Catheter Management Urethral (Leahy) Date of Insertion: 03/19/20 Time of Insertion: 07:30 Assessment/Plan - Problems/Diagnosis (1) SGA (small for gestational age), , affecting care of mother, antepartum Problem: Suspected Qualifiers: Fetus number: single or unspecified fetus Qualified Code(s): O36.5990 - Maternal care for other known or suspected poor growth, unspecified trimester, not applicable or unspecified (2) Anemia Problem: Acute Qualifiers: Anemia type: iron deficiency Iron deficiency anemia type: inadequate dietary iron intake Qualified Code(s): D50.8 - Other iron deficiency anemias (3) History of delivery Problem: Chronic (4) Asthma Problem: Inactive Qualifiers: Asthma severity: mild Asthma persistence: intermittent Asthma complication type: uncomplicated Qualified Code(s): J45.20 - Mild intermittent asthma, uncomplicated (5) ADHD (attention deficit hyperactivity disorder) Problem: Inactive Qualifiers: Attention deficit-hyperactivity disorder type: unspecified Qualified Code(s): F90.9 - Attention-deficit hyperactivity disorder, unspecified type
--- NOTE | 2020-03-21 05:05 | PN ---
Subjective - Date and Time Seen Date: 03/21/20 Time: 05:03 Objective - Vitals Vitals: Last Vital Signs Temp 36.5 C 03/20/20 14:01 Pulse 77 03/21/20 01:32 Resp 18 03/21/20 01:32 BP 114/61 03/21/20 01:32 Pulse Ox 97 03/21/20 01:32 Patient denies complaints. Breast-feeding. Lochia wnl abdomen - soft, nontender Uterus -firm, at umbilicus - 2 No calf tenderness Impression: day #2 - s/p spontaneous vaginal delivery. Plan: Routine discharge instructions Cauti Physician Documentation - Urinary Catheter Management Urethral (Leahy) Date of Insertion: 03/19/20 Time of Insertion: 07:30 Assessment/Plan - Problems/Diagnosis (1) SGA (small for gestational age), , affecting care of mother, antepartum Problem: Suspected Qualifiers: Fetus number: single or unspecified fetus Qualified Code(s): O36.5990 - Maternal care for other known or suspected poor growth, unspecified trimester, not applicable or unspecified (2) Anemia Problem: Acute Qualifiers: Anemia type: iron deficiency Iron deficiency anemia type: inadequate dietary iron intake Qualified Code(s): D50.8 - Other iron deficiency anemias (3) History of delivery Problem: Chronic (4) Asthma Problem: Inactive Qualifiers: Asthma severity: mild Asthma persistence: intermittent Asthma complication type: uncomplicated Qualified Code(s): J45.20 - Mild intermittent asthma, uncomplicated (5) ADHD (attention deficit hyperactivity disorder) Problem: Inactive Qualifiers: Attention deficit-hyperactivity disorder type: unspecified Qualified Code(s): F90.9 - Attention-deficit hyperactivity disorder, unspecified type
[2020-03-21 07:48] VITALS: BP 113/59
[2020-03-21] MEDS: IBUPROFEN 800 MG TABLET PO PRN (09:13)
[2020-03-21] MEDS: DOCUSATE SODIUM 100 MG CAPSULE PO SCH (09:13)
[2020-03-21] MEDS: PRENATAL VITS96/IRON FUM/FOLIC 1 TAB TABLET PO SCH (09:13)
[2020-03-21] MEDS: FERROUS SULFATE 325 MG TABLET PO SCH (09:13)
== END 2020-03-21 12:15 | disposition home or self-care (01) | DRG 807 ==
LOC: OB 00:10
PROVIDERS: ADMIT Obstetrics & Gynecology; ATTEND Obstetrics & Gynecology